=== PATIENT | female | born 2000 | race Hispanic/Latino ===

== ENCOUNTER 2022-10-01 04:55 | Inpatient (IN) | payer OTHER ==
[~2022-10-01] VITALS: Ht 175.3 cm; Wt 98.0 kg
--- NOTE | ~2022-10-01 | OR ---
[facility] [address] [place], [place] [address] Draft DATE OF OPERATION: 10/01/2022 SURGEON: Anni Lacy MD MASTER COASTWISE YACHT: Erick. PREOPERATIVE DIAGNOSES: Term , breech presentation, failure to tolerate a breech version. POSTOPERATIVE DIAGNOSES: Term , breech presentation, failure to tolerate a breech version, delivered. PROCEDURE: Primary section with low-segment transverse uterine incision. ANESTHESIA: Spinal. ESTIMATED BLOOD LOSS: 500 mL. DRAINS: Huddleston catheter. INDICATIONS AND FINDINGS: The patient is a 22-year-old female, 1, para 0, who was admitted at 38 and 5/7th weeks for breech version. The breech version was done, but the baby did not tolerate the version and because of this with a bradycardia, the decision was made to proceed with section. She was delivered a little girl as a aiyana breech, right sacrum anterior prepped via lower segment transverse uterine incision with Apgars of 9 and 9, weight of 7 pounds 1 ounce. The uterus, tubes, ovaries, and placenta were normal. DESCRIPTION OF PROCEDURE: The patient was prepped and draped in the supine position. A Pfannenstiel skin incision was made and carried down through the fascia. The incision was extended laterally. The inferior and superior fascial flaps were then created. Muscles were bluntly divided. The peritoneum elevated and incised, and the incision extended bluntly. The Tera retractor was placed and the uterine incision was made at the upper aspect of the PATIENT NAME: MICHELLE DOVER OPERATIVE REPORT DATE OF : 02 REPORT #: [id number] PHYSICIAN: ANNI LACY MD PCP: VALARIE JOHN MD REPORT IS CONFIDENTIAL AND NOT TO BE RELEASED WITHOUT AUTHORIZATION [facility] [address] [place] [id number] Draft peritoneal reflection. The baby was delivered with the above findings and handed off to the pediatric staff in attendance. The placenta was removed manually and the uterus explored with a lap tape assuring no remaining fragments. The edges of the incision were identified and closed with a running locking stitch of 0 Monocryl. The second layer was a vertical imbricating stitch of the same suture. The abdomen was irrigated, inspected and bleeding points were controlled with cautery. The Tera retractor was removed and the peritoneum identified. The peritoneum was closed with a running suture of 3-0 Vicryl. Bleeding points on the superior fascial flap were controlled with [id number] sutures of 0 Vicryl as these were mostly from perforated vessels. The muscles were rendered hemostatic with cautery. The muscles were brought together with interrupted sutures of 0 Vicryl. This layer was irrigated, inspected and good hemostasis was noted. The fascia was then closed from each angle to midline with a running suture of 0 Vicryl. The subcutaneous was irrigated and bleeding points controlled with cautery. The deep space was closed with interrupted sutures of 3-0 Vicryl. The skin was closed with mariela. All sponge and needle counts were correct. She tolerated the procedure well and was taken to the recovery room in good condition. Anni Lacy MD PJW/MODL /[id number] Copies: ~ PATIENT NAME: MICHELLE DOVER OPERATIVE REPORT DATE OF : 02 REPORT #: [id number] PHYSICIAN: ANNI LACY MD PCP: VALARIE JOHN MD REPORT IS CONFIDENTIAL AND NOT TO BE RELEASED WITHOUT AUTHORIZATION
--- OUTSIDE RECORDS SUMMARY | ~2022-10-01 | XMS | Continuity of Care Document ---
Demographics + + + | Address | [address] | | | [place] [address] | + + + | Preferred Language | Unknown | + + + | Marital Status | Never | + + + | Episcopal Affiliation | Unknown | + + + | Race | Unknown | + + + | Ethnic Group | Unknown | + + + Author + + + | Author | [facility] | + + + | Organization | [facility] | + + + | Address | [address] | | | [place] [address] | + + + | Phone | | + + + Care Team Providers + + + + | Care Cpa Tax Name | Role | Phone | + + + + Unavailable | Unavailable | + + + + Allergies No information. Encounters No information. Functional Status No information. Immunizations No information. Medications No information. Problems + + + + | date | description | facility | + + + + | 2021-07-10 14:36:23 | Acute gastroenteropathy | [facility] | | | due to [place] agent | [facility] | + + + + | 2022-07-20 23:44 | UNSPECIFIED FALL, INITIAL | [facility] | | | ENCOUNTER | | + + + + | 2022-07-20 23:44 | ENCOUNTER FOR EXAM AND | [facility] | | | OBSERVATION FOLLOWING OTH | | | | ACCIDENT | | + + + + | 2022-07-20 23:44 | 28 WEEKS GESTATION OF | [facility] | | | | | + + + + | 2022-10-01 04:55 | MATERNAL CARE FOR UNSTABLE | [facility] | | | LIE, NOT APPL | | + + + + | 2022-10-01 07:30 | MATERNAL CARE FOR UNSTABLE | [facility] | | | LIE, NOT APPL | | + + + + Procedures No information. Results/Labs No information. Social History No information. Vital Signs No information."
[2022-10-01 05:44] VITALS: BP 133/86
[2022-10-01 06:03] LABS: HEMOGLOBIN 11.9 g/dL (12.0-18.0); MCH 27.9 (27-36); MCHC 33.1 g/dl (30-36); MCV 84.3 fl (81-99); RBC 4.27 M/ul (4.3-5.7); RDW 13.7 (10.5-15.0)
[2022-10-01 06:20] LABS: AMPHETAMINES, UR NEGATIVE (NEGATIVE); BARBITURATES, UR NEGATIVE (NEGATIVE); BENZODIAZEPINES, UR NEGATIVE (NEGATIVE); MARIJUANA (THC), UR NEGATIVE (NEGATIVE)
[2022-10-01 06:21] LABS: BUPRENORPHINE,UR NEGATIVE (NEGATIVE); COCAINE, UR NEGATIVE (NEGATIVE); MDMA, UR NEGATIVE (NEGATIVE); METHADONE, UR NEGATIVE (NEGATIVE); METHAMPHETAMINE, UR NEGATIVE (NEGATIVE); OPIATES, UR NEGATIVE (NEGATIVE); OXYCODONE, UR NEGATIVE (NEGATIVE); PHENCYCLIDINE, UR NEGATIVE (NEGATIVE); TRICYCLIC ANTIDEPRESSANT, UR NEGATIVE (NEGATIVE)
[2022-10-01 06:58] LABS: ABO A; ANTIBODY SCREEN NEGATIVE; RH POSITIVE
--- NOTE | 2022-10-01 08:56 | NUR ---
10/01/22 0856 Sheets,Marylou 0860 PT ARRIVED TO PACU ON RA, PT MOTHER AND AT BEDSIDE. PT DENIES PAIN AND NAUSEA. FUNDAL CHECK DONE WITH [facility] RN. SPINAL LEVEL T-6 AND PT REPORTS "VERY NUMB." [id number] BABY TO CHEST WITH [facility] RN. HOB INCREASED SLIGHTLY AND PT EATING ICE CHIPS AND DENIES CONCERNS.
[2022-10-01 09:09] VITALS: BP 102/58
[2022-10-02 06:08] LABS: HEMATOCRIT 31.8 % (35.0-50.0); HEMOGLOBIN 10.3 g/dL (12.0-18.0); MCH 27.9 (27-36); MCHC 32.4 g/dl (30-36); MCV 86.1 fl (81-99); RBC 3.7 M/ul (4.3-5.7)
--- NOTE | 2022-10-02 08:11 | PR ---
[facility] [address] [place], [place] [address] Signed PP Progress Notes Datetime Report Generated by CPN: 10/02/2022 08:10 SUBJECTIVE: [id number] Pain: Within Normal Limits Nausea/Vomiting: Denies Flatus: Yes Bowel Movement: No Vital Signs: [id number] Vital Signs: Reviewed; Within Normal Limits Cardiovascular: Normal Respiratory: Normal Abdomen/Uterus: Abnormal Lochia: Normal Vulva/Perineum: Not Done Breasts: Not Done CVA Tenderness: Not Done Extremities: Normal Incision: Normal Progress: Abnormal Exam Comments: Abdomen with active BS. Fundus firm, NT @ U-1. H/H 10.3/31.8, WBC 13.1, plat 186k IMPRESSION/PLAN/PROCEDURES: [id number] Impression: Normal Progression Other Plans: ambulate, shower Procedures: None Progress Notes: Doing well. Will increase ambulation. Signing Physician: Anni Lacy MD Copies: ~ *Electronically Signed* 10/02/22 0810 ANNI LACY MD PATIENT NAME: MICHELLE DOVER PROGRESS NOTE DATE OF : 02 PHYSICIAN: ANNI LACY MD RPT #: [id number] REPORT IS CONFIDENTIAL AND NOT TO BE RELEASED WITHOUT AUTHORIZATION
--- NOTE | 2022-10-02 10:54 | NUR ---
MOM IN BED. FAMILY IN ROOM. GRANDMOTHER HOLDING BABY. BABY APPEARED TO BE RESTING CONTENTEDLY IN GRANDMOTHER'S ARMS. CONSENTED TO PRAYER. PRAYED FOR GOOD BEGINNINGS AND ONGOING BLESSING.
--- NOTE | 2022-10-03 10:03 | NUR ---
PT IN CHAIR WITH BABY AT BREAST. DAD ASSISTING WITH GETTING BABY TO EAT. STATE BABY TENDING TO SNACK AND SLEEP DURING THE DAY AND WANT TO EAT ALL NIGHT. EXPRESSED CONFIDENCE AND COMFORT THAT THEY WOULD GET IT WORKED OUT. CONSENTED TO PRAYER. PRAYED FOR POSITIVE OUTCOMES.
--- NOTE | 2022-10-03 11:55 | PR ---
[facility] [address] [facility] [place], [place] [address] Signed PP Progress Notes Datetime Report Generated by CPN: 10/03/2022 11:55 SUBJECTIVE: [id number] Pain: Within Normal Limits Nausea/Vomiting: Denies Flatus: Yes Bowel Movement: Yes Vital Signs: [id number] Vital Signs: Reviewed; Within Normal Limits EXAM: Met Cardiovascular: Not Done Respiratory: Not Done Abdomen/Uterus: Abnormal Lochia: Normal Vulva/Perineum: Not Done Breasts: Not Done CVA Tenderness: Not Done Extremities: Normal Incision: Normal Progress: Normal Exam Comments: Abdomen with active BS. Fundus firm, NT @ U-2. IMPRESSION/PLAN/PROCEDURES: [id number] Impression: Normal Progression Plan: Remove Jay; Discharge Other Plans: ambulate, shower Procedures: None Progress Notes: Doing well. She is ready for D/C. Signing Physician: Anni Lacy MD Copies: ~ *Electronically Signed* 10/03/22 1155 ANNI LACY MD PATIENT NAME: MICHELLE DOVER PROGRESS NOTE DATE OF : 02 PHYSICIAN: ANNI LACY MD RPT #: [id number] REPORT IS CONFIDENTIAL AND NOT TO BE RELEASED WITHOUT AUTHORIZATION
== END 2022-10-03 13:40 | disposition home or self-care (01) | DRG 788 ==
LOC: FBCO 04:55 → FBC 04:55 → FBCO 07:30 → DS 07:30 → FBC 07:40 → FBCO 07:40 → FBC 10-03 13:40
PROVIDERS: ADMIT Obstetrics & Gynecology; ATTEND Obstetrics & Gynecology
PROC: 10D00Z1 Extraction of Products of Conception, Low, Open Approach (ICD-10-PCS; principal; 2022-10-01 07:30)
DX: O32.1XX0 Maternal care for breech presentation, not applicable or unspecified (principal); O99.52 Diseases of the respiratory system complicating childbirth; J45.990 Exercise induced bronchospasm; O99.344 Other mental disorders complicating childbirth; F41.9 Anxiety disorder, unspecified; O76 Abnormality in fetal heart rate and rhythm complicating labor and delivery; Z3A.38 38 weeks gestation of pregnancy; Z37.0 Single live birth; Z67.10 Type A blood, Rh positive; Z88.0 Allergy status to penicillin; Z91.013 Allergy to seafood
CPT/HCPCS: 01961; 36415; 59412; 76942; 85027; 86850; 86900; 86901; A9270; J0690; J1100; J1200; J1650; J1885; J2274; J2405; J2590; J2795; J3010; J3105; J7121